=== PATIENT | female | born 1985 | race Caucasian/White ===

== ENCOUNTER → 2018-08-06 | Emergency (ER) | payer OTHER ==
[2018-08-06 20:33] VITALS: BP 105/57; PULSE 76; TEMP 98.1
--- NOTE | 2018-08-06 21:54 | PDOC ---
History of Present Illness - General Chief Complaint: Abscess Boil Stated Complaint: REF. BY DOCTOR Time Seen by Provider: 08/06/18 21:36 History Source: Patient - History of Present Illness Initial Comments: 08/06/18 22:35 33f no pmf presents to the ED with complaint of small "cyst"-like sac inside the external vagina for the past week. Went to [facility] to have it checked out today and was told to go to the ER to have it drained. She remembers putting in a tampon last week and feeling pain in the area. Denies dysuria, fever, n/v/d or vaginal discharge. Past History - Past Medical History Allergies/Adverse Reactions: Allergies Allergy/AdvReac Type Severity Reaction Status Date / Time No Known Allergies Allergy Verified 08/06/18 20:33 COPD: No - Suicide/Smoking/Psychosocial Hx Smoking History: Never smoked Review of Systems - Review of Systems Able to Perform ROS?: Yes Is the patient limited Armenian proficient: No Constitutional: No: Symptoms Reported HEENTM: No: Symptoms Reported Respiratory: No: Symptoms reported Cardiac (ROS): No: Symptoms Reported ABD/GI: No: Symptoms Reported : Yes: See HPI Musculoskeletal: No: Symptoms Reported Integumentary: No: Symptoms Reported All Other Systems: Reviewed and Negative *Physical Exam - Vital Signs Last Vital Signs Temp Pulse Resp BP Pulse Ox 98.1 F 76 18 105/57 L 95 08/06/18 20:31 08/06/18 20:31 08/06/18 20:31 08/06/18 20:31 08/06/18 20:31 - Physical Exam General Appearance: Yes: Nourished, Appropriately Dressed. No: Apparent Distress HEENT: positive: EOMI, MARGUERITE, Normal ENT Inspection Respiratory/Chest: positive: Lungs Clear, Normal Breath Sounds. negative: Chest Tender, Respiratory Distress Cardiovascular: positive: Regular Rhythm, Regular Rate, S1, S2 Female Pelvic Exam: positive: other (small 0.3x0.4 ovoid sac filled with pus at 7 o'clock of the introitus. ). negative: normal external exam, Bartholin mass Gastrointestinal/Abdominal: positive: Normal Bowel Sounds, Flat, Soft. negative : Tender Neurologic: positive: Fully Oriented, Alert, Normal Mood/Affect Procedures - Incision and Drainage I&D Site: Right: Bartholin (Small pus-filled sac over external introitus, ) Betadine cleansed: No Anesthesia: 1% Lidocaine Medical Decision Making - Medical Decision Making 08/06/18 22:40 Boil/sac drained, small amount of puss came out, sac fully deflated now. Patient not in pain. Will follow up with her own OBGYN within the week, No need for antibiotic as the sac was external, surrounding tissues look healthy. *DC/Admit/Observation/Transfer Diagnosis at time of Disposition: Vagina boil - Discharge Dispostion Disposition: HOME Condition at time of disposition: Improved Decision to Admit order: No - Referrals - Patient Instructions Printed Discharge Instructions: DI for Boils, DI for Incision and Drainage of a Skin Abscess Additional Instructions: Follow up with your OBGYN within the next. Come back to the emergency department for any new, worsening or concerning symptoms. - Post Discharge Activity
--- NOTE | 2018-08-06 22:29 | PDOC ---
Attending Attestation - Resident Resident Name: Acosta Babin - ED Attending Attestation I have performed the following: I have examined & evaluated the patient, The case was reviewed & discussed with the resident, I agree w/resident's findings & plan, Exceptions are as noted - HPI HPI: 08/06/18 22:25 33 yo F with no pmhx here with c/o right sided vaginal pain, noted when she put a tampon in. was seen at [facility] earlier today and told she had a n abscess that needed to be drained, and was sent to ed. denies f/c no ho prior cyst. no dysuria. no vaginal discharge. - Physicial Exam PE: 08/06/18 22:26 awake alert abd soft nt nd. gu exam external vaginal lower right labia, with small pedunculated cystic structure pea size, yellow fluid contained. thin walled. no labial inflammation or swelling. no internal vaginal pain on manual exam. - Medical Decision Making 08/06/18 22:28 pt with smal peducunclated cyst, possible infected skin tag, vs inclusion cyst with secondary infection. no bartholins. plan i&D local lidocaine. expressed purulence. no signs of cellulitis. will recomend soaks ad ob / slip presser followup. no abx necessary.
== END | disposition home or self-care (01) ==
LOC: JER 20:26
PROC: 0U9MXZZ Drainage of Vulva, External Approach (ICD-10-PCS; principal; 2018-08-06)
DX: N76.4 Abscess of vulva (principal)
CPT/HCPCS: 99281-25